=== PATIENT | male | born 2000 | race Caucasian/White ===

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

== ENCOUNTER 2020-01-16 20:32 | Outpatient (CLI) | payer OTHER, SELFPAY ==
[2020-01-16 20:58] VITALS: BMI 23.7
== END 2020-01-16 21:00 | disposition home or self-care (01) ==
PROVIDERS: PCP Nurse Practitioner Family; Visit Provider Nurse Practitioner
DX: Z11.1 Encounter for screening for respiratory tuberculosis (principal)
CPT/HCPCS: 86580

== ENCOUNTER 2020-02-09 16:23 | Outpatient (CLI) | payer OTHER, SELFPAY ==
[2020-02-09 16:36] VITALS: BMI 24.3
== END 2020-02-09 16:43 | disposition home or self-care (01) ==
LOC: UTC.OUT 16:24
PROVIDERS: PCP Nurse Practitioner Family; Visit Provider Physician Assistant
DX: Z11.1 Encounter for screening for respiratory tuberculosis (principal)
CPT/HCPCS: 86580

== ENCOUNTER → 2020-09-15 11:38 | Outpatient (CLI) | payer OTHER, SELFPAY ==
--- NOTE | 2020-09-15 11:45 | XR_ITS ---
PROCEDURE: XR CHEST 2V CLINICAL HISTORY: cough, fever, negative covid COMPARISON: CR CXR2V XR chest 2V from 12/08/2017 FINDINGS: The cardiomediastinal silhouette and pulmonary vascularity are within normal limits. Ill-defined opacities are present in the right upper lobe and left midlung. These measure approximately 12 mm each and may be due to small areas infiltrate, developing nodules, or sclerotic rib additional vague opacity noted in the left midlung overlying the 4th rib anteriorly. No acute bony abnormalities. IMPRESSION: Ill-defined bilateral opacities which could be due to pulmonary pathology or sclerotic rib lesions. Chest CT may provide further evaluation Dictated by: Maged García MD 09/15/2020 12:05 Maged García MD in [place] 09/15/2020 12:05
== END ==
PROVIDERS: PCP Nurse Practitioner Family; Visit Provider Physician Assistant
DX: R05 Cough (principal)
CPT/HCPCS: 71046